=== PATIENT | female | born 1965 | race Caucasian/White ===

== ENCOUNTER 2016-12-16 10:17 | Emergency (ER) | payer OTHER ==
[2016-12-16 10:47] LABS: ASCORBIC ACID (UR NOT ORDER) NEG (NEG); BILIRUBIN, URINE NEGATIVE (NEG); KETONE, URINE NEGATIVE (NEG); LEUKOCYTE ESTERASE(NOT OR NEG (NEG); NITRITE (URINE) NEG (NEG); WBC (NOT ORDERED) (RFLEX) 1 (0-5)
== END 2016-12-16 11:17 | disposition home or self-care (01) ==
LOC: ER 10:17
PROVIDERS: Physician Assistant
DX: S39.012A Strain of muscle, fascia and tendon of lower back, initial encounter (principal); M54.16 Radiculopathy, lumbar region; Z87.442 Personal history of urinary calculi; W18.40XA Slipping, tripping and stumbling without falling, unspecified, initial encounter
CPT/HCPCS: 72100; 81001; 96372; 99284; J1885; J2800